=== PATIENT | male | born 1980 | race Caucasian/White ===

== ENCOUNTER → 2018-12-28 | Outpatient (CLI) | payer BC | LOC: CARD 12:18 | PROVIDERS: ATTEND Family Medicine | DX: R42 Dizziness and giddiness (principal) ==

== ENCOUNTER 2022-02-08 22:33 | Emergency (ER) | payer BC ==
[~2022-02-08] VITALS: Ht 180.3 cm; Wt 73.7 kg
[2022-02-08 23:18] VITALS: BP_SYST 124; BP_SYST 127; BP_SYST 129; BP_DIAS 78; BP_DIAS 79; BP_DIAS 95
[2022-02-08 23:37] LABS: BASOPHILS # (AUTO) 0.1 10^3/uL (0.0-0.1); BASOPHILS % (AUTO) 1 % (0-10); EOSINOPHILS # (AUTO) 0.2 10^3/uL (0.0-0.3); EOSINOPHILS % (AUTO) 2 % (0-10); HEMATOCRIT 37 % (40-54); HEMOGLOBIN 12.5 g/dL (13.3-17.7); LYMPHOCYTES % (AUTO) 32 % (12-44); MEAN CORPUSCULAR HEMOGLOBIN 30 pg (25-34); MEAN CORPUSCULAR HGB CONC 34 g/dL (32-36); MEAN CORPUSCULAR VOLUME 91 fL (80-99); MEAN PLATELET VOLUME 10.4 fL (9.0-12.2); MONOCYTES # (AUTO) 1.1 10^3/uL (0.0-1.0); MONOCYTES % (AUTO) 9 % (0-12); NEUTROPHILS # (AUTO) 6.9 10^3/uL (1.8-7.8); NEUTROPHILS % (AUTO) 56 % (42-75); PLATELET COUNT 213 10^3/uL (130-400); WHITE BLOOD COUNT 12.2 10^3/uL (4.3-11.0)
[2022-02-08 23:54] LABS: PROTHROMBIN TIME PATIENT 13.7 SEC (12.2-14.7)
[2022-02-09 00:16] LABS: CHLORIDE 102 MMOL/L (98-107); POTASSIUM 3.4 MMOL/L (3.6-5.0); SODIUM 140 MMOL/L (135-145)
[2022-02-09 00:17] LABS: ALANINE AMINOTRANSFERASE 11 U/L (0-55); ALBUMIN 4.7 GM/DL (3.2-4.5); ALKALINE PHOSPHATASE 74 U/L (40-136); BILIRUBIN,TOTAL 0.5 MG/DL (0.1-1.0); BUN/CREATININE RATIO 9; CALCIUM 9.5 MG/DL (8.5-10.1); CARBON DIOXIDE 26 MMOL/L (21-32); CREATININE SERUM 1.07 MG/DL (0.60-1.30); GFR ESTIMATED 91; GLUCOSE 96 MG/DL (70-105); LIPASE 18 U/L (8-78); MAGNESIUM 2.3 MG/DL (1.6-2.4); TOTAL PROTEIN 7.8 GM/DL (6.4-8.2)
--- NOTE | 2022-02-09 01:41 | ED General ---
General Chief Complaint: Head/Cervical Problems Stated Complaint: NECK AND HEAD TIGHTNESS Nursing Triage Note: Patient presents to ED per POV ambulating steady gait to Overflow Room. Pt reports starting [id number] tonight he feels a strange sensation from top of shoulders running up the neck to top of head like gushing blood flow. It has been intermittant and stopped but came back at bedtime. Pt states, "It is a head alfredo." No N/V/D reported but decreased appetitie. Pt takes one Energy drink a day and consumes caffeine. Source of Information: Patient, Spouse History of Present Illness Date Seen by Provider: Feb 08, 2022 Time Seen by Provider: 22:38 Initial Comments 41-year-old male presenting with complaints of increased pressure in his head from his neck up. He states it feels like there is blood rushing to his head. It feels similar to when you bend over and all the blood friends.. It has been happening off and on for a while but seem to be worse tonight. He has not been having much appetite recently. When he told his he felt like he was having pressure in his head neck she became concerned that he was having a heart attack or heart problems. They decided to come to the emergency department to be evaluated tonight rather than wait and be seen through the clinic. He denies having any chest pain, nausea, vomiting, diarrhea, fever, chills, cough. He does report having palpitations at times and those have been going on for a while Modifying Factors: worse with Movement Associated Systoms: No Chest Pain, No Cough, No Diaphoresis, No Fever/Chills; Headaches (Pressure sensation), Loss of Appetite; No Malaise, No Nausea/Vomiting, No Rash, No Seizure, No Shortness of Air, No Syncope, No Weakness Allergies and Home Medications Allergies Coded Allergies: No Known Drug Allergies (Unverified , 02/08/22) Patient Home Medication List Home Medication List Reviewed: Yes Amoxicillin/Potassium Clav (Amox Tr-K Clv 875-125 mg Tab) 875 Mg-125 Mg Tablet, 1 EACH PO BID Prescribed by: MAREK AGUILERA on 02/09/22 0142 Mometasone Furoate (Mometasone Furoate) 50 Mcg/Actuation Cardwell.pump, 2 SPRAYS NSEACH DAILY Prescribed by: MAREK AGUILERA on 02/09/22 0142 Review of Systems Review of Systems Constitutional: No chills, No dizziness, No fever EENTM: No ear discharge, No hearing loss, No ear pain, No blurred vision, No double vision, No eye pain, No tearing, No vision loss, No dental problems, No hoarseness, No epistaxis, No nose congestion, No throat pain Respiratory: No cough, No short of breath Cardiovascular: No chest pain, No edema Gastrointestinal: see HPI; No nausea, No vomiting Genitourinary: No dysuria Musculoskeletal: no symptoms reported Skin: no symptoms reported Psychiatric/Neurological: See HPI Hematologic/Lymphatic: Denies Blood Clots Past [id number]-Almggq Hx Patient Social History Tobacco Use?: Yes Tobacco type used: Cigarettes Smoking Status: Current Everyday Smoker Substance use?: No Alcohol Use?: No Pt feels they are or have been: No Immunizations Up To Date First/Initial COVID19 Vaccinat: date ? 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 oz. kg; 22.00 BMI Method: General Appearance: No Apparent Distress, WD/WN HEENT: PERRL/EOMI, TMs Normal, Pharynx Normal, Moist Mucous Membranes, Other (Pressure palpation over sinuses both maxillary and frontal) Neck: Full Range of Motion, Normal Inspection, Non Tender, Supple; No Carotid Bruit Respiratory: Chest Non Tender, Lungs Clear, Normal Breath Sounds, No Accessory Muscle Use, No Respiratory Distress Cardiovascular: Regular Rate, Rhythm, Normal Peripheral Pulses Gastrointestinal: Normal Bowel Sounds, No Pulsatile Mass, Non Tender, Soft Rectal: Deferred Extremity: Normal Capillary Refill, Normal Inspection, No Pedal Edema Neurologic/Psychiatric: Alert, Oriented x3, No Motor/Sensory Deficits, Normal Mood/Affect, care clinician II-XII Norm as Tested Skin: Normal Color, Warm/Dry Progress/Results/Core Measures Suspected Sepsis SIRS Temperature: Pulse: 79 Respiratory Rate: 16 Laboratory Tests 02/08/22 23:25: White Blood Count 12.2H Blood Pressure 124 /95 Mean: 105 Laboratory Tests 02/08/22 23:25: Creatinine 1.07, INR Comment 1.0, Platelet Count 213, Total Bilirubin 0.5 Results/Orders Lab Results Laboratory Tests Test 02/08/22 23:25 Range/Units White Blood Count 12.2 H 4.3-11.0 10^3/uL Red Blood Count 4.11 L 4.30-5.52 10^6/uL Hemoglobin 12.5 L 13.3-17.7 g/dL Hematocrit 37 L 40-54 % Mean Corpuscular Volume 91 80-99 fL Mean Corpuscular Hemoglobin 30 25-34 pg Mean Corpuscular Hemoglobin Concent 34 32-36 g/dL Red Cell Distribution Width 12.8 10.0-14.5 % Platelet Count 213 130-400 10^3/uL Mean Platelet Volume 10.4 9.0-12.2 fL Immature Granulocyte % (Auto) 0 % Neutrophils (%) (Auto) 56 42-75 % Lymphocytes (%) (Auto) 32 12-44 % Monocytes (%) (Auto) 9 0-12 % Eosinophils (%) (Auto) 2 0-10 % Basophils (%) (Auto) 1 0-10 % Neutrophils # (Auto) 6.9 1.8-7.8 10^3/uL Lymphocytes # (Auto) 4.0 1.0-4.0 10^3/uL Monocytes # (Auto) 1.1 H 0.0-1.0 10^3/uL Eosinophils # (Auto) 0.2 0.0-0.3 10^3/uL Basophils # (Auto) 0.1 0.0-0.1 10^3/uL Immature Granulocyte # (Auto) 0.0 0.0-0.1 10^3/uL Prothrombin Time 13.7 12.2-14.7 SEC INR Comment 1.0 0.8-1.4 Activated Partial Thromboplast Time 27 24-35 SEC Sodium Level 140 135-145 MMOL/L Potassium Level 3.4 L 3.6-5.0 MMOL/L Chloride Level 102 98-107 MMOL/L Carbon Dioxide Level 26 21-32 MMOL/L Anion Gap 12 5-14 MMOL/L Blood Urea Nitrogen 10 7-18 MG/DL Creatinine 1.07 0.60-1.30 MG/DL Estimat Glomerular Filtration Rate 91 BUN/Creatinine Ratio 9 Glucose Level 96 70-105 MG/DL Calcium Level 9.5 8.5-10.1 MG/DL Corrected Calcium 8.5-10.1 MG/DL Magnesium Level 2.3 1.6-2.4 MG/DL Total Bilirubin 0.5 0.1-1.0 MG/DL Aspartate Amino Transf (AST/SGOT) 16 5-34 U/L Alanine Aminotransferase (ALT/SGPT) 11 0-55 U/L Alkaline Phosphatase 74 40-136 U/L Troponin I < 0.30 <0.30 NG/ML Pro-B-Type Natriuretic Peptide 30.0 <125.0 PG/ML Total Protein 7.8 6.4-8.2 GM/DL Albumin 4.7 H 3.2-4.5 GM/DL Lipase 18 8-78 U/L My Orders Orders - MAREK AGUILERA MD Cbc With Automated Diff (02/08/22 23:13) Magnesium (02/08/22 23:13) Ekg Tracing (02/08/22 23:13) Comprehensive Metabolic Panel (02/08/22 23:13) Protime With Inr (02/08/22 23:13) Partial Thromboplastin Time (02/08/22 23:13) O2 (02/08/22 23:13) Monitor-Rhythm Ecg Trace Only (02/08/22 23:13) Ed Iv/Invasive Line Start (02/08/22 23:13) Lipase (02/08/22 23:13) Troponin I Fs (02/08/22 23:13) Probnp Fs (02/08/22 23:13) Ct Head/Sinuses Wo (02/08/22 23:13) Orthostatic Vital Signs (Adult (02/08/22 23:13) Vital Signs/I&O 02/08/22 02/08/22 22:37 23:18 Temp 37.3 Pulse 79 59 64 79 Resp 16 B/P (MAP) 150/86 (107) 129/79 (96) 127/78 (94) 124/95 (105) Pulse Ox 99 O2 Delivery Room Air Capillary Refill : Less Than 3 Seconds Blood Pressure Mean: 105 Progress Note #1: Progress Note Since his was concerned about possible cardiac disease will check labs and cardiac enzymes. He was having complaining of pressure sensation in his neck so cardiac illness was a possibility in the differential. With him also having pressure sensation in his head while obtaining CT scan of the head and sinuses to look for sinus disease. If he has elevated blood pressure we will try treating with a low-dose medicine while waiting on test. Progress Note #2: Progress Note Electrocardiogram does not show acute ST elevation. His labs are all stable without acute significant abnormality other than he has mild elevation of his white blood cell count 12.2. He had CT scan family come back and showing pansinusitis with mucosal thickening and polyps. We will treat with Augmentin for sinusitis and nasal steroid spray for the polyps and mucosal thickening. Counseled on follow-up and return precautions for his palpitations and sinusitis ECG Initial ECG Impression Date: Feb 09, 2022 Initial ECG Impression Time: 00:15 Initial ECG Rate: 57 Initial ECG Rhythm: S.Roberto Initial ECG Comparisson: No Previous ECG Available Comment Sinus bradycardia with a heart rate of 57 bpm. RI interval [address] elevation. Borderline right axis deviation. QT interval 416 ms with a QTC of 409 ms. There is no prior tracing available for comparison. Diagnostic Imaging Diagonstic Imaging: CT Plain Films/CT/US/NM/MRI: head (And sinuses) Comments CT of the head and sinuses read by Dr. Gerard Eid MD at 2230 and faxed [phone]. Impression paranasal sinus disease as noted above with most prominent involving the right maxillary sinus with complete opacification and mucoperiosteal sclerosis, consistent with a chronic component. No intracranial process. Reviewed: Reviewed by Me Departure Impression Primary Impression: Pansinusitis Qualified Codes: J32.4 - Chronic pansinusitis Additional Impressions: Pressure in head Intermittent palpitations Nasal polyps Disposition: HOME, SELF-CARE Condition: Stable Departure-Patient Inst. Decision time for Depature: 01:37 Referrals: NEPTALI AKINS MD (PCP/Family) Primary Care Physician Patient Instructions: Sinusitis, Adult ED, Palpitations ED Add. Discharge Instructions: Take course of antibiotics to treat for sinusitis and pressure in head and sinuses. Use nasal steroid spray to help with pressure and congestion. Follow up with clinic about palpitations and sinus disease. You may need to see ENT such as Dr. Golden if you have continued problems as you may even need surgery on your sinuses. All discharge instructions reviewed with patient and/or family. Voiced understanding. Scripts Mometasone Furoate (Mometasone Furoate) 50 Mcg/Actuation Cardwell.pump 2 SPRAYS NSEACH DAILY for Nasal Polyps/Sinusitis for 30 Days, #17 GM 0 Refills Prov: MAREK AGUILERA MD 02/09/22 Amoxicillin/Potassium Clav (Amox Tr-K Clv 875-125 mg Tab) 875 Mg-125 Mg Tablet 1 EACH PO BID for sinusitis for 10 Days, #20 TAB 0 Refills Prov: MAREK AGUILERA MD 02/09/22 MAREK AGUILERA MD Feb 09, 2022 01:41
[2022-02-09] MEDS ORDERED: MOME17SP11 NSEACH (01:42)
[2022-02-09] MEDS ORDERED: AMOX1TAB12 PO (01:42)
[2022-02-09 01:57] VITALS: BP 115/75
--- NOTE | 2022-02-09 07:33 | Diagnostic Imaging Report ---
PROCEDURE: CT head without contrast and CT sinuses with contrast. TECHNIQUE: Routine noncontrast CT images were obtained through the head and sinuses. Coronal reformats of the sinuses were also performed and reviewed. Auto Exposure Controls were utilized during the CT exam to meet ALARA standards for radiation dose reduction. DATE: February 08, 2022. COMPARISON: None. INDICATION: 41-year-old male, head and neck pressure. FINDINGS: The ventricles and cerebral spinal fluid spaces are of normal size and configuration for the patient's age. There is no mass effect or midline shift. There is no acute intracranial hemorrhage. There is no abnormal extra-axial fluid collection. There is wall thickening of the right maxillary sinus bony may consistent with chronic sinusitis. There is complete opacification of the right maxillary sinus. There is mucosal thickening of the left sphenoid sinus and ethmoidal air cells. There is nonspecific opacification in the right ethmoidal air cells. There is an air-fluid level in the left maxillary sinus. The sphenoid sinuses are well-aerated bilaterally. There is mucosal thickening along the sphenoethmoidal recesses bilaterally. There is opacification of the right ostiomeatal unit. There is mucosal thickening along the left ostiomeatal unit. IMPRESSION: 1. No identified acute intracranial abnormality. 2. Air-fluid level in the left maxillary sinus as well as nonspecific partial opacification within right ethmoidal air cells which may potentially reflect acute sinusitis. 3. Wall thickening of the right maxillary sinus wall compatible with findings of chronic sinusitis. Dictated by: Dictated on workstation # [id number]
== END 2022-02-09 01:57 | disposition home or self-care (01) ==
LOC: EDUNIT# 22:33 → ER FS 22:34
DX: J32.4 Chronic pansinusitis (principal); R00.2 Palpitations; R00.1 Bradycardia, unspecified; F17.210 Nicotine dependence, cigarettes, uncomplicated; Z28.311 Partially vaccinated for COVID-19
CPT/HCPCS: 36415; 70450; 70486; 80053; 83690; 83735; 83880; 84484; 85025; 85610; 85730; 93005; 93041